=== PATIENT | female | born 1930 | race Caucasian/White ===

== ENCOUNTER 2017-09-08 17:00 | Inpatient (IN) | payer OTHER ==
[~2017-09-08] VITALS: Ht 149.9 cm; Wt 51.7 kg
[~2017-09-08 17:00] MED LIST: DON5T PO; LISI-275 PO
[2017-09-08] MEDS ORDERED: SODIUM CHLORIDE 0.9% 500 ML IVB ONE (17:20)
[2017-09-08 18:05] LABS: Basophils # (auto) 0.1 uL; Basophils % (auto) 0.8 % (0.0-2.0); Eosinophils # (auto) 0 uL; Eosinophils % (auto) 0.2 % (0.0-7.0); Hematocrit 42.4 % (36.0-46.0); Hemoglobin 13.8 g/dL (12.2-16.2); Lymphocytes # (auto) 0.3 uL; Lymphocytes % (auto) 2.3 % (10.0-50.0); Mean Corpuscular Hgb Conc. 32.5 g/dL (32.0-36.0); Mean Corpuscular Volume 95.5 fL (80.0-100.0); Monocytes # (auto) 0.7 uL; Neutrophils # (auto) 13.2 uL; Neutrophils % (auto) 91.7 % (37.0-80.0); Nucleated Red Blood Cells % 0.1 %; Platelet Count (auto) 254 10^3/uL (140-450); Red Blood Cells 4.44 10^6/uL (4.0-5.20); Red Cell Distribution Width 14.5 % (11.8-14.3); White Blood Cell 14.5 10^3/uL (4.4-10.8)
[2017-09-08] MEDS ORDERED: MORPHINE SULFATE 4 MG/ML SYR/VIAL IV ONE (18:15)
[2017-09-08] MEDS ORDERED: ONDANSETRON HCL 4 MG/2 ML VIAL IV ONE (18:15)
[2017-09-08 18:19] LABS: INR 1.1 (0.9-1.15); Partial Thromboplastin Time 26.6 sec (22.64-33.71)
[2017-09-08 18:23] LABS: Alanine Aminotransferase 20 U/L (13-56); Albumin 3.7 g/dL (3.4-5.0); Anion Gap 10 (5-15); Aspartate Aminotransferase 22 U/L (15-37); BUN/Creatinine Ratio 10.1; Blood Urea Nitrogen 7 mg/dL (7-18); Calcium 9.2 mg/dL (8.5-10.1); Carbon Dioxide 25 mmol/L (21-32); Chloride 97 mmol/L (98-107); GFR African American 104 mL/min; GFR Non-African American 86 mL/min; Glucose 138 mg/dL (74-106); Magnesium 1.9 mg/dL (1.6-2.6); Potassium 3.8 mmol/L (3.5-5.1); Sodium 132 mmol/L (136-145)
[2017-09-08 18:28] LABS: Alkaline Phosphatase 123 U/L (45-117); Bilirubin, Total 1.1 mg/dL (0.2-1.0); Total Protein 7.6 g/dL (6.4-8.2)
[2017-09-08 19:08] LABS: Urine Bacteria FEW /hpf (None Seen); Urine Blood Negative /uL (Negative); Urine Specific Gravity 1.009 (1.001-1.035); Urine WBC 1 /hpf (0 - 5)
[2017-09-08] MEDS ORDERED: cefTRIAXone 1GM/10ml IVPUSH 10 ML IV ONE (19:30)
[2017-09-08] MEDS ORDERED: ACETAMINOPHEN 325 MG TAB PO PRN (21:15)
[2017-09-08] MEDS ORDERED: ONDANSETRON HCL 4 MG/2 ML VIAL IV PRN (21:15)
[2017-09-08] MEDS ORDERED: MORPHINE SULFATE 4 MG/ML SYR/VIAL IV PRN ×2 (21:15)
[2017-09-08] MEDS ORDERED: TEMAZEPAM 15 MG CAP PO PRN (21:15)
[2017-09-08] MEDS ORDERED: NITROGLYCERIN 0.4 MG SL TAB SL PRN (21:15)
[2017-09-08] MEDS ORDERED: HYDROcodone-ACET 5/325MG TAB PO PRN (21:15)
[2017-09-08] MEDS ORDERED: cloNIDine HCL 0.1 MG TAB PO PRN (21:15)
[2017-09-08] MEDS ORDERED: DONEPEZIL HYDROCHLORIDE 5 MG TAB PO SCH (22:00)
[2017-09-08] MEDS ORDERED: FAMOTIDINE 20 MG TAB PO SCH (22:00)
[2017-09-08 22:50] VITALS: BP 156/73
[2017-09-08] MEDS: SODIUM CHLORIDE 0.9% 1,000 ML IV SCH (23:11)
[2017-09-08 23:30] VITALS: BP 156/73
[2017-09-08] MEDS ORDERED: CITA-73 PO (23:39)
[2017-09-08] MEDS ORDERED: MULTTAB99 PO (23:39)
[2017-09-08] MEDS ORDERED: DONETAB6 PO (23:39)
[2017-09-09 05:00] VITALS: BP 141/71
[2017-09-09 06:20] LABS: Basophils # (auto) 0 uL; Basophils % (auto) 0.6 % (0.0-2.0); Eosinophils # (auto) 0.1 uL; Eosinophils % (auto) 1.1 % (0.0-7.0); Hematocrit 36.5 % (36.0-46.0); Hemoglobin 12.3 g/dL (12.2-16.2); Lymphocytes # (auto) 0.5 uL; Lymphocytes % (auto) 6.5 % (10.0-50.0); Mean Corpuscular Hemoglobin 31.8 pg (28.0-32.0); Mean Corpuscular Hgb Conc. 33.7 g/dL (32.0-36.0); Mean Corpuscular Volume 94.6 fL (80.0-100.0); Monocytes # (auto) 0.8 uL; Monocytes % (auto) 10.3 % (0.0-12.0); Neutrophils # (auto) 6.1 uL; Neutrophils % (auto) 81.5 % (37.0-80.0); Platelet Count (auto) 204 10^3/uL (140-450); Red Blood Cells 3.85 10^6/uL (4.0-5.20); White Blood Cell 7.5 10^3/uL (4.4-10.8)
[2017-09-09 06:29] LABS: Potassium 3.8 mmol/L (3.5-5.1)
[2017-09-09 06:32] LABS: Albumin 2.9 g/dL (3.4-5.0); BUN/Creatinine Ratio 14.3
[2017-09-09 06:35] LABS: Bilirubin, Total 1.3 mg/dL (0.2-1.0); Total Protein 6.1 g/dL (6.4-8.2)
[2017-09-09] MEDS ORDERED: cefTRIAXone 1GM/10ml IVPUSH 10 ML IV SCH (09:00)
[2017-09-09 09:06] VITALS: BP 130/66
[2017-09-09] MEDS ORDERED: ENOXAPARIN SOD 40 MG/0.4 ML SYRINGE SC SCH (10:00)
[2017-09-09] MEDS ORDERED: ENOXAPARIN SOD 30 MG/0.3 ML SYRINGE SC SCH (10:00)
[2017-09-09] MEDS ORDERED: LISINOPRIL 5 MG TAB PO SCH (10:00)
[2017-09-09] MEDS: SODIUM CHLORIDE 0.9% 1,000 ML IV SCH (10:01)
[2017-09-09 12:56] VITALS: BP 139/70
[2017-09-09] MEDS ORDERED: CITALOPRAM HYDROBR 20 MG TAB PO ONE (14:30)
[2017-09-09 17:15] VITALS: BP 118/55
[2017-09-09] MEDS ORDERED: FAMOTIDINE 20 MG TAB PO SCH (21:45)
[2017-09-10] MEDS ORDERED: CITALOPRAM HYDROBR 20 MG TAB PO SCH (10:00)
== END 2017-09-09 17:00 | disposition short-term general hospital (02) | DRG 964 ==
LOC: ER 17:00 → EDBD 17:00 → TELE 17:01 → TELE-EAST 22:50
PROVIDERS: ADMIT Nurse Practitioner; ATTEND Family Medicine
DX: S72.091A Other fracture of head and neck of right femur, initial encounter for closed fracture (principal); S32.591A Other specified fracture of right pubis, initial encounter for closed fracture; S22.41XA Multiple fractures of ribs, right side, initial encounter for closed fracture; N39.0 Urinary tract infection, site not specified; Z79.899 Other long term (current) drug therapy; G30.9 Alzheimer's disease, unspecified; F02.80 Dementia in other diseases classified elsewhere, unspecified severity, without behavioral disturbance, psychotic disturbance, mood disturbance, and anxiety; I10 Essential (primary) hypertension; W18.39XA Other fall on same level, initial encounter; Y93.89 Activity, other specified; Z66 Do not resuscitate; Y92.89 Other specified places as the place of occurrence of the external cause; Y99.8 Other external cause status; Z88.1 Allergy status to other antibiotic agents; Z88.8 Allergy status to other drugs, medicaments and biological substances
CPT/HCPCS: 36415; 51702; 70450; 71045; 72192; 80053; 81001; 83735; 84484; 85025; 85610; 85730; 87081; 93005; 96361; 96374; 96375; 99291; J2405

== ENCOUNTER 2019-04-04 20:14 | Inpatient (IN) | payer OTHER | END 2019-04-08 16:00 | LOC: OVERFLOW 20:15 → WEST WING 04-06 23:13 → ER 20:14 | DX: S52.501A Unspecified fracture of the lower end of right radius, initial encounter for closed fracture (principal); S02.402A Zygomatic fracture, unspecified side, initial encounter for closed fracture; S02.401A Maxillary fracture, unspecified side, initial encounter for closed fracture; S02.80XA Fracture of other specified skull and facial bones, unspecified side, initial encounter for closed fracture; N39.0 Urinary tract infection, site not specified; S02.40CA Maxillary fracture, right side, initial encounter for closed fracture; S02.40EA Zygomatic fracture, right side, initial encounter for closed fracture; S52.601A Unspecified fracture of lower end of right ulna, initial encounter for closed fracture; G30.9 Alzheimer's disease, unspecified; I10 Essential (primary) hypertension; S01.111A Laceration without foreign body of right eyelid and periocular area, initial encounter; Z96.641 Presence of right artificial hip joint; M19.90 Unspecified osteoarthritis, unspecified site; S52.201A Unspecified fracture of shaft of right ulna, initial encounter for closed fracture ==